=== PATIENT | female | born 1980 | race Hispanic/Latino ===

== ENCOUNTER 2017-07-11 15:28 | Observation (INO) | payer SELFPAY ==
[2017-07-11 20:01] LABS: Bicarbonate 28 mEq/L (21-31); Glucose Level 88 mg/dL (65-120); Potassium 3.9 mEq/L (3.6-5.0); Sodium Level 139 mEq/L (135-145)
[2017-07-11 20:04] LABS: Protime INR 1.02
[2017-07-11 20:07] LABS: ALT/SGPT 25 IU/L (10-60); AST/SGOT 22 IU/L (10-42); Absolute Lymphocytes (CBC) 2.8 K/uL (0.7-4.9); Absolute Monocytes 0.5 K/uL (0.1-1.3); Absolute Neutrophil 2.5 K/uL (1.8-8.0); Albumin 3.6 g/dL (3.2-5.5); Alkaline Phosphatase 106 IU/L (42-121); BUN Blood Urea Nitrogen 8 mg/dL (6-20); Basophils % 0.4 % (0-1.3); Bilirubin Direct 0.1 mg/dL (0-0.2); Bilirubin Total 0.5 mg/dL (0.3-1.2); Creatine Phosphokinase 39 IU/L (22-269); Eosinophils % 1.1 % (0-4.4); Hematocrit 39.8 % (36.0-45.0); Lymphocytes % 47.6 % (15.3-44.8); MCH 28.6 pg (27.0-35.0); MCV 83.2 fL (80-100); MPV 10.8 fL (7.6-11.3); Magnesium 1.5 mg/dL (1.8-2.5); Monocytes % 8.3 % (3.3-12.3); Protein, Total 6.5 g/dL (6.0-8.3); RBC Red Blood Cell Count 4.79 M/uL (3.86-4.86)
[2017-07-11 20:07] LABS: Barbiturates NEGATIVE; Benzodiazepines NEGATIVE; Cocaine NEGATIVE; METHAMPHETAM NEGATIVE; Opiates POSITIVE; Phencyclidine NEGATIVE; THC Cannibis NEGATIVE
[2017-07-11 20:09] LABS: Urine Blood TRACE (NEG); Urine Glucose NEGATIVE (NEG); Urine Protein NEGATIVE (NEG); Urine Specific Gravity <1.005 (1.005-1.030); Urine pH 5.5 (5.0-7.0)
[2017-07-11 20:11] LABS: CKMB Creatine Kinase MB 1.5 ng/ml (0.3-4.0)
--- NOTE | 2017-07-11 20:36 | RAD REPORT ---
EXAM DESCRIPTION: Silvestre Single View07/11/2017 7:26 pm CLINICAL HISTORY: Chest pain COMPARISON: none FINDINGS: The lungs appear clear of acute infiltrate. The heart is normal size IMPRESSION: No acute abnormalities displayed
[2017-07-11 21:48] LABS: T4,Total 16.83 ug/dl (6.09-12.23)
[2017-07-11 21:53] LABS: T3 Free 23.51 pg/ml (2.84-4.24)
[2017-07-11] MEDS ORDERED: NA CHLORIDE 0.9% 1,000 ML ONE (22:08)
[2017-07-11 22:10] LABS: Thyroid Stimulating Hormone < 0.02 uIU/mL (0.34-5.60)
--- NOTE | 2017-07-11 22:11 | EDPHYS ---
Physician Documentation [facility] Name: Kunal Evans Age: 37 yrs Sex: Female : 1980 Arrival Date: 07/11/2017 Time: 15:32 Bed 13 Private MD: Higinio Sun E ED Physician Ashok Acosta HPI: 07/11 23:12 This 37 yrs old Female presents to ER via Ambulatory with complaints of High tw4 Blood Pressure, Palpitations. 23:12 The patient has elevated blood pressure and discovered this at home. Onset: The tw4 symptoms/episode began/occurred acutely. Modifying factors: The symptoms are aggravated by activity, The symptoms are alleviated by. Associated signs and symptoms: The patient has no apparent associated signs or symptoms. The patient has experienced a previous episode. The patient has been recently seen by a physician: the patient's primary care provider. 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 - Social history:: Smoking status: Patient uses tobacco products, smokes one-half pack cigarettes per day. ROS: 23:12 Constitutional: Negative for fever, chills, and weight loss, Respiratory: Negative for tw4 shortness of breath, cough, wheezing, and pleuritic chest pain, Abdomen/GI: Negative for abdominal pain, nausea, vomiting, diarrhea, and constipation, Back: Negative for injury and pain, MS/Extremity: Negative for injury and deformity, Skin: Negative for injury, rash, and discoloration. 23:12 Cardiovascular: Positive for palpitations. Exam: 23:12 Constitutional: This is a well developed, well nourished patient who is awake, alert, tw4 and in no acute distress. Chest/axilla: Normal chest wall appearance and motion. Nontender with no deformity. No lesions are appreciated. 23:12 Abdomen/GI: Soft, non-tender, with normal bowel sounds. No distension or tympany. No guarding or rebound. No evidence of tenderness throughout. MS/ Extremity: Pulses equal, no cyanosis. Neurovascular intact. Full, normal range of motion. 23:12 Cardiovascular: Rate: tachycardic, Rhythm: regular. Vital Signs: 15:53 BP 118 / 66; Pulse 107; Resp 20; Temp 98.4; Pulse Ox 99% on R/A; Weight 45.36 kg; aj Height 4 ft. 11 in. (149.86 cm); Pain 0/10; 19:30 BP 115 / 66; Pulse 102; Resp 16; Pulse Ox 99% on R/A; Pain 0/10; ao 20:24 BP 116 / 68; Pulse 93; Resp 18; Temp 98.4(O); Pulse Ox 100% ; Pain 0/10; ao 21:37 BP 116 / 64; Pulse 92; Resp 18; Pulse Ox 100% on R/A; Pain 0/10; ao 22:40 BP 124 / 70; Pulse 103; Resp 18; Pulse Ox 100% on R/A; Pain 0/10; ao 23:20 BP 108 / 68; Pulse 98; Resp 18; Pulse Ox 98% on R/A; Pain 0/10; ao 15:53 Body Mass Index 20.20 (45.36 kg, 149.86 cm) aj MDM: 18:58 Patient medically screened. tw4 23:17 Differential diagnosis: hypertensive crisis, Malignant HTN. Data reviewed: vital signs, tw4 nurses notes. Data interpreted: cardiac monitor: rhythm is normal sinus rhythm, sinus tachycardia, Pulse oximetry: Interpretation: normal. Test interpretation: by ED physician or midlevel provider: plain radiologic studies. Counseling: I had a detailed discussion with the patient and/or guardian regarding: the historical points, exam findings, and any diagnostic results supporting the discharge/admit diagnosis, lab results, radiology results. Physician consultation: Fátima South MD regarding admission, patient's condition, need to evaluate the patient as soon as possible, and will see patient in inpatient room. Admission orders: after a detailed discussion of the patient's condition and case, the admit orders are written by me. ED course: Pt was anxious during her stay in the ED was notified of admission. Agrees with treatment plan.. 07/11 18:58 Order name: Basic Metabolic Panel; Complete Time: 20:28 tw4 07/11 18:58 Order name: BNP; Complete Time: 20:28 07/11 18:58 Order name: CBC with Diff; Complete Time: 20:28 07/11 18:58 Order name: Ckmb; Complete Time: 20:28 07/11 18:58 Order name: CPK; Complete Time: 20:28 07/11 18:58 Order name: LFT's; Complete Time: 20:28 07/11 18:58 Order name: Magnesium; Complete Time: 20:28 07/11 18:58 Order name: PT-INR; Complete Time: 20:28 07/11 18:58 Order name: Ptt, Activated; Complete Time: 20:28 07/11 18:58 Order name: Troponin (emerg Dept Use Only); Complete Time: 20:28 07/11 18:58 Order name: D-Dimer; Complete Time: 20:28 07/11 19:23 Order name: Urine Drug Screen; Complete Time: 20:28 07/11 20:04 Order name: Urine Dipstick--Ancillary (enter results); Complete Time: 20:28 07/11 20:05 Order name: Test, Serum; Complete Time: 20:28 07/11 18:58 Order name: XRAY Chest (1 view); Complete Time: 21:56 07/11 18:58 Order name: EKG; Complete Time: 18:59 07/11 18:58 Order name: Cardiac monitoring; Complete Time: 19:44 07/11 18:58 Order name: EKG - Nurse/Tech; Complete Time: 19:43 07/11 18:58 Order name: IV Saline Lock; Complete Time: 19:43 07/11 18:58 Order name: Labs collected and sent; Complete Time: 19:43 07/11 18:58 Order name: O2 Per Protocol; Complete Time: 19:43 07/11 18:58 Order name: O2 Sat Monitoring; Complete Time: 19:43 07/11 18:58 Order name: Urine Dipstick-Ancillary (obtain specimen); Complete Time: 19:43 07/11 20:28 Order name: TSH 07/11 20:28 Order name: T3 Free 07/11 20:28 Order name: T4 Free tw4 07/11 20:28 Order name: T4,Total tw4 EC:12 Rate is 86 beats/min. Rhythm is regular. QRS [place] is Normal. [place] interval is normal. QRS tw4 interval is normal. QT interval is normal. No Q waves. T waves are Normal. No ST changes noted. Clinical impression: Normal ECG. Interpreted by me. Reviewed by me. Administered Medications: No medications were administered Disposition: 07/11/17 22:10 Hospitalization ordered by Fátima South for Observation. Preliminary diagnosis is Thyrotoxicosis [hyperthyroidism]. - Bed requested for Telemetry/MedSurg (observation). - Status is Observation. ao - Condition is Stable. - Problem is new. - Symptoms are unchanged. UTI on Admission? No Signatures: Dispatcher [employer] EDAurora Palacio RN RN Mariola Candelaria RN RN Jeyson Cheng RN Ashok Samuel MD MD tw4 Corrections: (The following items were deleted from the chart) 22:11 22:10 Hospitalization Ordered by Fátima South MD for Observation. Preliminary fc diagnosis is Thyrotoxicosis [hyperthyroidism]. Bed requested for Telemetry/MedSurg (observation). Status is Observation. Condition is Stable. Problem is new. Symptoms are unchanged. UTI on Admission? No. tw4 23:31 22:11 07/11/2017 22:10 Hospitalization Ordered by Fátima South MD for Observation. ao Preliminary diagnosis is Thyrotoxicosis [hyperthyroidism]. Bed requested for Telemetry/MedSurg (observation). Status is Observation. Condition is Stable. Problem is new. Symptoms are unchanged. UTI on Admission? No. fc
--- NOTE | 2017-07-11 22:11 | ER ---
Nurse's Notes [facility] Name: Kunal Evans Age: 37 yrs Sex: Female : 1980 Arrival Date: 07/11/2017 Time: 15:32 Bed 13 Private MD: Higinio Sun E Diagnosis: Thyrotoxicosis [hyperthyroidism] Presentation: 07/11 15:50 Presenting complaint: Patient states: Sent by PCP for labs and evaluation for thyroid aj disfunction. Transition of care: patient was not received from another setting of care. Onset of symptoms was July 11, 2017. Care prior to arrival: None. 15:50 Method Of Arrival: Ambulatory aj 15:50 Acuity: PAYAM 3 aj 19:12 Initial Sepsis Screen: Does the patient meet any 2 criteria? No. Patient's initial ao sepsis screen is negative. Does the patient have a suspected source of infection? No. Patient's initial sepsis screen is negative. Triage Assessment: 15:53 General: Appears in no apparent distress. comfortable, Behavior is calm, cooperative, aj appropriate for age. Pain: Denies pain. Neuro: Level of Consciousness is awake, alert, obeys commands, Oriented to person, place, time, situation, Appropriate for age. Respiratory: Airway is patent Respiratory effort is even, unlabored, Respiratory pattern is regular, symmetrical. Derm: Skin is intact, is healthy with good turgor, Skin is pink, warm \T\ dry. normal. 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 - Social history:: Smoking status: Patient uses tobacco products, smokes one-half pack cigarettes per day. Screenin:11 Abuse screen: Denies threats or abuse. Denies injuries from another. Nutritional ao screening: No deficits noted. Tuberculosis screening: No symptoms or risk factors identified. Fall Risk None identified. Assessment: 19:09 General: Appears in no apparent distress. comfortable, Behavior is calm, cooperative, ao appropriate for age. Pain: Denies pain. Neuro: Level of Consciousness is awake, alert, obeys commands, confused, Oriented to person, place, time, situation, Appropriate for age Moves all extremities. Speech is normal, Facial symmetry appears normal, Pupils are PERRLA. Cardiovascular: Capillary refill < 3 seconds Patient's skin is warm and dry. Cardiovascular: Heart tones S1 S2. Respiratory: Airway is patent Respiratory effort is even, unlabored. Respiratory: Breath sounds are clear bilaterally. GI: Abdomen is non-distended, Bowel sounds present X 4 quads. : No signs and/or symptoms were reported regarding the genitourinary system. EENT: No signs and/or symptoms were reported regarding the EENT system. Derm: Skin is intact, Skin is pink, warm \T\ dry. Skin temperature is warm. Musculoskeletal: No signs and/or symptoms reported regarding the musculoskeletal system. 20:24 Reassessment: Patient appears in no apparent distress at this time. No changes from ao previously documented assessment. Patient and/or family updated on plan of care and expected duration. Pain level reassessed. Patient is alert, oriented x 3, equal unlabored respirations, skin warm/dry/pink. 21:01 Reassessment: Patient was walking toward her car in the parking lot when it was stopped ao by me. Patient was told that she is not allow to walk outside the ED with and IV and that she would have to ask to get it removed before she leaves. Patient was directed back to her room. 21:37 Reassessment: Patient appears in no apparent distress at this time. Patient and/or ao family updated on plan of care and expected duration. Pain level reassessed. Patient is alert, oriented x 3, equal unlabored respirations, skin warm/dry/pink. 22:40 Reassessment: Patient appears in no apparent distress at this time. Patient and/or ao family updated on plan of care and expected duration. Pain level reassessed. Patient is alert, oriented x 3, equal unlabored respirations, skin warm/dry/pink. 23:29 Reassessment: Patient had NPO diet per DR South. Patient and significant other ordered a ao pizza and was told not to eat until clarified this order with Dr South. Dr South was called and would want patient to be NPO after midnight. Patient was allow to have her pizza. Floor nurse was called and notified. Vital Signs: 15:53 BP 118 / 66; Pulse 107; Resp 20; Temp 98.4; Pulse Ox 99% on R/A; Weight 45.36 kg; aj Height 4 ft. 11 in. (149.86 cm); Pain 0/10; 19:30 BP 115 / 66; Pulse 102; Resp 16; Pulse Ox 99% on R/A; Pain 0/10; ao 20:24 BP 116 / 68; Pulse 93; Resp 18; Temp 98.4(O); Pulse Ox 100% ; Pain 0/10; ao 21:37 BP 116 / 64; Pulse 92; Resp 18; Pulse Ox 100% on R/A; Pain 0/10; ao 22:40 BP 124 / 70; Pulse 103; Resp 18; Pulse Ox 100% on R/A; Pain 0/10; ao 23:20 BP 108 / 68; Pulse 98; Resp 18; Pulse Ox 98% on R/A; Pain 0/10; ao 15:53 Body Mass Index 20.20 (45.36 kg, 149.86 cm) aj ED Course: 15:32 Patient arrived in ED. mr 15:33 Higinio Sun MD is Private Physician. mr 15:51 Triage completed. aj 15:53 Arm band placed on left wrist. Patient placed in waiting room, Patient notified of wait aj time. 18:23 Ritika William RN is Primary Nurse. aj1 18:48 Ashok Acosta MD is Attending Physician. tw4 19:11 Patient has correct armband on for positive identification. environmental monitoring technician on. Pulse ao ox on. NIBP on. 19:26 XRAY Chest (1 view) In Process Unspecified. EDMS 19:50 Inserted saline lock: 20 gauge in right antecubital area, using aseptic technique. ao ,using aseptic technique. Connie Dill Blood collected. 22:10 Fátima South MD is Hospitalizing Provider. tw4 23:26 No provider procedures requiring assistance completed. Patient admitted, IV remains in ao place. Administered Medications: No medications were administered Outcome: 22:10 Decision to Hospitalize by Provider. tw4 23:26 Admitted to Tele accompanied by connie, room 420, Report called to Primary RN ao 23:26 Condition: stable 23:26 Instructed on discharge instructions, the need for admit. 23:31 Patient left the ED. ao Signatures: Dispatcher [employer] Ritika Royal RN RN aj1 Aurora Ribera RN RN aj Rivera, Maria mr Ortiz, Alex, RN RN ao Wadley, Terrence, MD MD tw4
[2017-07-11] MEDS ORDERED: ACETAMINOPHEN 500 MG TAB PO PRN (23:03)
[2017-07-11] MEDS ORDERED: ONDANSETRON 4 MG/2 ML VIAL IV PRN (23:03)
[2017-07-11] MEDS: NA CHLORIDE 0.9% 1,000 ML IV SCH (23:48)
[2017-07-12] MEDS: PROPRANOLOL HCL 10 MG TAB PO SCH ×2 (02:21→13:07)
--- NOTE | 2017-07-12 06:57 | EKG ---
Test Date: 2017-07-11 Test Time: 19:18:02 Electronic Prepress Operator: MEASUREMENT RESULTS: Intervals: Rate: 86 AK: 144 QRSD: 78 QT: 372 QTc: 445 [place]: P: 81 AK: 144 QRS: 79 T: 42 INTERPRETIVE STATEMENTS: Normal sinus rhythm Normal ECG No previous ECG available for comparison Electronically Signed On 07-12-17 06:57:24 CDT by Felipe Broussard
--- NOTE | 2017-07-12 07:48 | P.HP ---
Certification for Inpatient Patient admitted to: Observation With expected LOS: <2 Midnights Patient will require the following post-hospital care: None Practitioner: I am a practitioner with admitting privileges, knowledge of patient current condition, hospital course, and medical plan of care. Services: Services provided to patient in accordance with Admission requirements found in Title 42 Section 412.3 of the Code of Federal Regulations Patient History Date of Service: 07/11/17 Reason for admission: Hyperthyroidism History of Present Illness: Patient is a 37-year-old female came into the hospital with palpitations and tachyarrhythmia. Patient has been losing weight and has noticed that she has been shaking quite a bit. This is been going on for the last 3-4 months. Patient was on a ketone diet and was losing weight and felt like that was related to the diet she was doing. She takes occasional supplements but has not take anything in quite a while. Patient was seen by her PCP a couple weeks ago and then again today. She was sent to the emergency room. She was found to have an elevated free thyroid hormone levels. Patient was felt to have thyrotoxicosis. Patient will have multiple diagnostic studies done. Will try to get a thyroid uptake study performed. They were not able to will do an ultrasound. Patient be managed with a low-dose beta-tory as well as methimazole as an outpatient. She will need to get labs done regularly to make sure she does not develop any bone marrow issues as well as any abnormalities in her liver function testing. I have spoken patient regarding this. Anticipate discharge home with outpatient follow-up with bonsai culturist at [place]. Allergies codeine Allergy (Verified 07/11/17 23:34) Itching/Hives/Rash naproxen Allergy (Verified 07/11/17 23:34) Hives/Rash Penicillins Allergy (Verified 07/11/17 23:34) Itching/Hives/Rash Home Medications: Carisoprodol 350 mg PO BEDTIME 07/11/17 Hydrocodone/Acetaminophen [Hydrocodon-Acetaminophn 10-325] 1 each PO QIDP PRN - Past Medical/Surgical History Has patient received pneumonia vaccine in the past: No Diabetic: No -: Asthmatic -: Spinal Injury -: Hysterectomy -: Tubal Ligation - Family History Mother Medical History: Diabetes - Social History Smoking Status: Current every day smoker Alcohol use: No CD- Drugs: No Caffeine use: Yes Place of Residence: Home Review of Systems 10-point ROS is otherwise unremarkable Physical Examination - Vital Signs Temperature: 98.3 F Blood Pressure: 111/65 Pulse: 89 Respirations: 18 Pulse Ox (%): 98 - Physical Exam General: Alert, In no apparent distress, Oriented x3 HEENT: Atraumatic, PERRLA, Mucous membr. moist/pink, EOMI, Sclerae nonicteric Neck: Supple, 2+ carotid pulse no bruit, No LAD, Without JVD or thyroid abnormality, Thyromegaly Respiratory: Clear to auscultation bilaterally, Normal air movement Cardiovascular: Regular rate/rhythm, Normal S1 S2, No murmurs Gastrointestinal: Normal bowel sounds, Soft and benign, Non-distended, No tenderness Musculoskeletal: No clubbing, No swelling, No tenderness Integumentary: No rashes Neurological: Normal gait, Normal speech, Normal strength at 5/5 x4 extr, Normal tone, Sensation intact, Cranial nerves 3-12 intact, Normal affect Lymphatics: No axilla or inguinal lymphadenopathy - Studies Laboratory Data (last 24 hrs) 07/11/17 19:35: PT 12.0, INR 1.02, APTT 27.2 07/11/17 19:35: WBC 5.8, Hgb 13.7, Hct 39.8, Plt Count 135 L 07/11/17 19:35: B-Natriuretic Peptide 93 07/11/17 19:35: Sodium 139, Potassium 3.9, BUN 8, Creatinine 0.35 L, Glucose 88 , Magnesium 1.5 L, Total Bilirubin 0.5, AST 22, ALT 25, Alkaline Phosphatase 106 Assessment & Plan - Problems (Diagnosis) (1) Hyperthyroidism Current Visit: Yes Status: Acute (2) Thyrotoxicosis Current Visit: Yes Status: Acute (3) Palpitations Current Visit: Yes Status: Acute (4) Tachycardia Current Visit: Yes Status: Acute (5) Weight loss Current Visit: Yes Status: Acute - Plan Plan: 1. Aggressive IV hydration 2. Low-dose beta-tory 3. Start methimazole in the morning; she will need close outpatient follow-up to monitor her CBC as wells as a comprehensive metabolic profile. I have spoken to patient regarding this. 4. Thyroid uptake study; if for not able to then will get a thyroid ultrasound 5. Outpatient follow with Endocrinology 6. Anticipate discharge home later today. Discharge Plan: Home Plan to discharge in: 24 Hours - Advance Directives Does patient have a Living Will: No Does patient have a Durable POA for Healthcare: No - Code Status/Comfort Care Code Status Assessed: Yes Code Status: Full Code Critical Care: No Time Spent Managing PTS Care (In Minutes): 50
[2017-07-12] MEDS ORDERED: HYDROCODONE/APAP 10/325 TAB PO PRN (08:24)
[2017-07-12] MEDS ORDERED: PROPYLTHIOURACIL 50 MG TAB PO SCH (09:00)
--- NOTE | 2017-07-12 11:47 | RAD REPORT ---
EXAM DESCRIPTION: US - Thyroid Para Parotid Gland - 07/12/2017 10:17 am CLINICAL HISTORY: Hyperthyroidism. COMPARISON: Thyroid ultrasound January 2014 FINDINGS: Isthmus is 10 mm in thickness, abnormal size. Right lobe is 6.6 x 2.8 x 2.9 cm. Left lobe is 5.5 x 2.5 x 3.1 cm. Thyroid tissue is diffusely heterogeneous. This creates several small areas of nodularity. There is no nodular focus greater than 10 mm in size. No suspicious calcification patter n or dominant nodule. No adjacent mass or lymphadenopathy. Overall increased vascularity of the thyro id tissue noted. IMPRESSION: Thyromegaly without a suspicious or dominant thyroid nodule. Gland has enlarged in size since 2013.
[2017-07-12] MEDS: NA CHLORIDE 0.9% 1,000 ML IV SCH (13:05)
== END 2017-07-12 15:34 | disposition home or self-care (01) ==
LOC: ER 15:28 → ERHOLD 22:26 → 4TH 23:04
PROVIDERS: ADMIT Hospitalist; ATTEND Hospitalist
DX: E05.90 Thyrotoxicosis, unspecified without thyrotoxic crisis or storm (principal); R00.2 Palpitations; R00.0 Tachycardia, unspecified; R63.4 Abnormal weight loss; F17.200 Nicotine dependence, unspecified, uncomplicated
CPT/HCPCS: 36415; 71045; 76536; 80048; 80076; 80307; 81003; 82550; 82553; 83735; 83880; 84436; 84439; 84443; 84481; 84484; 84703; 85025; 85379; 85610; 85730; 86376; 86800; 93005; 99285; G0378; J7030